=== PATIENT | female | born 1965 ===

== ENCOUNTER 2023-01-08 17:32 | Emergency (ER) | payer OTHER ==
[~2023-01-08] VITALS: Ht 149.9 cm; Wt 54.0 kg
[2023-01-08] MEDS ORDERED: LIPITOR20 MG PO (17:40)
[2023-01-08] MEDS ORDERED: COZAAR50 MG PO (17:40)
[2023-01-08] MEDS ORDERED: RESTORIL15 MG PO (17:41)
== END 2023-01-08 23:22 | disposition home or self-care (01) ==
LOC: ER 17:32
DX: K82.8 Other specified diseases of gallbladder (principal); R10.11 Right upper quadrant pain

== ENCOUNTER 2023-01-10 08:53 | Inpatient (IN) | payer OTHER ==
[~2023-01-10] VITALS: Ht 149.9 cm; Wt 25.4 kg
[~2023-01-10 08:53] MED LIST: COZAAR50 MG PO; LIPITOR20 MG PO; RESTORIL15 MG PO
== END 2023-01-13 14:32 | disposition home or self-care (01) | DRG 419 ==
LOC: ER 08:53 → MEDI 17:06
PROVIDERS: Surgery; ADMIT Specialist; ATTEND Specialist
PROC: 0FT44ZZ Resection of Gallbladder, Percutaneous Endoscopic Approach (ICD-10-PCS; principal; 2023-01-11 11:45)
DX: K81.1 Chronic cholecystitis (principal); Z20.822 Contact with and (suspected) exposure to COVID-19